=== PATIENT | male | born 1975 | race Caucasian/White ===

== ENCOUNTER 2023-12-29 20:48 | Emergency (ER) | payer MEDICAID ==
[~2023-12-29] VITALS: Ht 195.6 cm; Wt 63.5 kg
[2023-12-29 21:05] VITALS: BP_SYST 113; PULSE 83; RESP 18; TEMP 97.6; O2SAT 100
[2023-12-29 23:01] VITALS: BP_SYST 113; PULSE 83; RESP 18; TEMP 97.6; O2SAT 100
== END 2023-12-29 23:01 | disposition home or self-care (01) ==
LOC: SED 20:48
DX: S62.101A Fracture of unspecified carpal bone, right wrist, initial encounter for closed fracture (principal); X58.XXXA Exposure to other specified factors, initial encounter; Y93.89 Activity, other specified; Y92.89 Other specified places as the place of occurrence of the external cause; Y99.8 Other external cause status
CPT/HCPCS: 99281; 99283